=== PATIENT | female | born 1960 | race Caucasian/White ===

== ENCOUNTER 2016-07-22 10:38 | Emergency (ER) | payer OTHER ==
[~2016-07-22] VITALS: Ht 160 cm; Wt 89.0 kg
[~2016-07-22 10:38] MED LIST: ALBU8.5H3 IH; ASPI-535 PO; CARV3.1260 PO; CLOP75TA27 PO; ENAL2.5T PO; FURO-109 PO; LORA0.5T PO; PANT40TA3 PO; SPIR25TA PO
[2016-07-22 10:49] VITALS: Ht 160 cm; Wt 89.0 kg
[2016-07-22] MEDS ORDERED: morphine 4 MG/ML VIAL IV STA (11:17)
[2016-07-22] MEDS ORDERED: SOD CHLORIDE 0.9% 500 ML IV STA (11:17)
[2016-07-22] MEDS ORDERED: ONDANSETRON 4 MG INJ IV STA (11:17)
[2016-07-22] MEDS ORDERED: KETOROLAC 15 MG INJ IV STA (11:47)
--- NOTE | 2016-07-22 11:52 | ERD ---
ER Documentation Chief Complaint Date/Time DATE: 07/22/16 TIME: 11:48 Chief Complaint ap since 0600 HPI 55-year-old female who presents to the emergency room complaining of left-sided abdominal pain since 6 AM. She describes colicky bandlike pain radiating from her back to the mid abdomen. She describes it as 10 out of 10 and intermittent coming in waves. She denies any chest pain or shortness of breath, no pleuritic pain. She does have a history of a pacemaker and defibrillator secondary to unknown cause. The patient does not recall why she has this. The patient does describe a history of gallstones but no abdominal surgical history , no dysuria urgency or frequency, no fevers or chills. No numbness or tingling. Additionally the patient is complaining of bedbug bites to her abdomen, she is also complaining of left ear pain and drainage. Unknown duration of the symptoms. ROS All systems reviewed and are negative except as per history of present illness. Medications Home Meds Active Scripts Ibuprofen* (Motrin*) 800 Mg Tab, 800 MG PO Q6H Y for PAIN AND OR ELEVATED TEMP, #30 TAB Prov:CASIE SPAULDING MD 07/22/16 Ondansetron (Ondansetron Odt) 4 Mg Tab.rapdis, 4 MG PO Q6H Y for NAUSEA AND/OR VOMITING, #10 TAB Prov:CASIE SPAULDING MD 07/22/16 Hydrocodone/Acetaminophen ([place] 10-325 Tablet) 1 Each Tablet, 1 TAB PO Q6H Y for PAIN, #7 TAB Prov:CASIE SPAULDING MD 07/22/16 Ofloxacin* (Ocuflox*) 0.3%-5 Ml Ophth Drops, 1 DROP LEFT EAR QID for 7 Days, BOTTLE Prov:CASIE SPAULDING MD 07/22/16 Reported Medications Albuterol Sulfate* (Proair HFA*) 8.5 Gm Hfa.aer.ad, 2 PUFF INH Q6H Y for WHEEZING AND SOB, #1 INHALER 07/22/16 Bisoprolol Fumarate* (Bisoprolol Fumarate*) 5 Mg Tablet, 5 MG PO DAILY, TAB 07/22/16 Lisinopril* (Lisinopril*) 5 Mg Tablet, 5 MG PO DAILY, #30 TAB 07/22/16 Digoxin* (Digitek*) 125 Mcg Tablet, 0.125 MG PO DAILY, TAB 07/22/16 Albuterol Sulfate* (Proair HFA*) 8.5 Gm Hfa.aer.ad, 8.5 GM IH Y 05/07/13 Aspirin Ec (Aspir 81) 81 Mg Tablet.dr, 81 MG PO DAILY 05/06/13 Spironolactone* (Aldactone*) 25 Mg Tablet, 25 MG PO DAILY 05/06/13 Discontinued Reported Medications Lorazepam* (Lorazepam*) 0.5 Mg Tablet, 0.5 MG PO Y 05/07/13 Enalapril Maleate* (Enalapril Maleate*) 2.5 Mg Tablet, 2.5 MG PO DAILY 05/06/13 Clopidogrel Bisulfate (Clopidogrel) 75 Mg Tablet, 75 MG PO DAILY 05/06/13 Carvedilol* (Carvedilol*) 3.125 Mg Tablet, 3.125 MG PO BID 05/06/13 Furosemide* (Lasix*) 40 Mg Tablet, 40 MG PO DAILY 05/06/13 Pantoprazole* (Protonix*) 40 Mg Tablet.dr, 40 MG PO 05/06/13 Allergies Allergies: Coded Allergies: azithromycin (Verified Allergy, Unknown, 07/22/16) piperacillin sodium (Verified Allergy, Unknown, 07/22/16) rash tazobactam sodium (Verified Allergy, Unknown, 07/22/16) rash PMhx/Soc History of Surgery: No Anesthesia Reaction: No Hx Neurological Disorder: No Hx Respiratory Disorders: Yes (ASTHMA) Hx Cardiac Disorders: Yes (CARDIAC CATH 2008 NORMAL) Hx Psychiatric Problems: No Hx Miscellaneous Medical Probl: Yes (dysilipidemia, [place], asthma, gallstones) Hx Alcohol Use: Yes Hx Substance Use: No Hx Tobacco Use: No FmHx Family History: No diabetes Physical Exam Vitals Vital Signs Date Time Temp Pulse Resp B/P Pulse Ox O2 Delivery O2 Flow Rate FiO2 07/22/16 10:49 97.6 72 19 118/58 99 Physical Exam General: Well developed, well nourished, no acute distress Head: Normocephalic, atraumatic. Eyes: Pupils equally reactive, EOM intact ENT: Moist mucous membranes, left ear canal shows evidence of purulent drainage , tympanic membrane is intact and nonbulging Neck: Supple, no lymphadenopathy Respiratory: Lungs clear bilaterally, no distress Cardiovascular: RRR, no murmurs, rubs, or gallops Abdominal: Soft, mild tenderness to the mid abdomen without rebound or guarding , no pulsatile mass : Deferred MSK: No edema, no unilateral swelling, 5/5 strength no pulse deficits Neurologic: Alert and oriented, moving all extremities, normal speech, no focal weakness, no cerebellar signs Skin: Small rash to the anterior abdomen consistent with bedbug bites Psych: Normal mood Result Diagram: 07/22/16 1145 07/22/16 1145 Results 24 hrs Laboratory Tests Test 07/22/16 11:45 Activated Partial Thromboplast Time 24.7Sec Alanine Aminotransferase (ALT/SGPT) 32IU/L Albumin 4.5g/dl Albumin/Globulin Ratio 1.25 Alkaline Phosphatase 81IU/L Anion Gap 16 Aspartate Amino Transf (AST/SGOT) 22IU/L Basophils # 0.010^3/ul Basophils % 0.5% Blood Urea Nitrogen 11mg/dl Calcium Level 9.4mg/dl Carbon Dioxide Level 29mmol/L Chloride Level 99mmol/L Creatinine 0.69mg/dl Direct Bilirubin 0.00mg/dl Eosinophils # 0.210^3/ul Eosinophils % 3.2% Globulin 3.60g/dl Glucose Level 143mg/dl Hematocrit 48.2% Hemoglobin 16.3g/dl INR International Normalized Ratio 0.93 Indirect Bilirubin 0.4mg/dl Lipase 198U/L Lymphocytes # 1.110^3/ul Lymphocytes % 18.8% Mean Corpuscular Hemoglobin 30.1pg Mean Corpuscular Hemoglobin Concent 33.8g/dl Mean Corpuscular Volume 88.9fl Mean Platelet Volume 7.5fl Monocytes # 0.610^3/ul Monocytes % 9.8% Neutrophils # 4.110^3/ul Neutrophils % 67.7% Nucleated Red Blood Cells # 0.010^3/ul Nucleated Red Blood Cells % 0.0/100WBC Platelet Count 41918^3/UL Potassium Level 4.4mmol/L Prothrombin Time 12.5Sec Prothrombin Time Ratio 1.0 Red Blood Count 5.4210^6/ul Red Cell Distribution Width 14.0% Sodium Level 140mmol/L Total Bilirubin 0.4mg/dl Total Protein 8.1g/dl Troponin I < 0.012ng/ml White Blood Count 6.010^3/ul Current Medications Medications (Trade) Dose Ordered Sig/Awilda Route PRN Reason Start Time Stop Time Status Last Admin Dose Admin Sodium Chloride (NS) 500 ml @ 500 mls/hr Q1H STAT IV 07/22/16 11:17 07/22/16 12:16 DC 07/22/16 11:43 Morphine Sulfate (morphine) 4 mg ONCE STAT IV 07/22/16 11:17 07/22/16 11:18 DC Ondansetron HCl (Zofran Inj) 4 mg ONCE STAT IV 07/22/16 11:17 07/22/16 11:18 DC 07/22/16 11:43 Ketorolac Tromethamine (Toradol) 15 mg ONCE STAT IV 07/22/16 11:47 07/22/16 11:50 DC 07/22/16 11:51 Procedures/MDM EKG, MONITORS, & DIAGNOSTIC IMAGING: EKG: I reviewed and interpreted a 12-lead EKG. Rhythm: Atrial pacemaker Ectopy: None Intervals: No abnormalities ST segments: No elevations or depressions T waves: No contiguous inversions Chest x-ray: I reviewed and interpreted a 1 view of the chest Mediastinum: No enlargement Cardiac silhouette: No cardiomegaly Airspace: Clear lung hanna bilaterally without evidence of pneumothorax Bones: No evidence of fracture CT abdomen and pelvis IMPRESSION: Fat density structure with peripheral isodense thickened rim measuring 9 mm adjacent to the sigmoid colon may represent epiploic appendagitis. No evidence of bowel obstruction. No renal or ureteral stone. Hepatic steatosis. Cholelithiasis. Ultrasound gallbladder: Cholelithiasis without evidence of acute cholecystitis LAB INTERPRETATION: No leukocytosis, no hepatobiliary obstruction, negative troponin MEDICAL DECISION MAKING: The patient presents with myriad complaints. She has evidence of left otitis externa which will be treated with topical antibiotics. No evidence of perforation. She has evidence of bedbugs. No evidence of scabies, topical ointment and bed hygiene discussed. The patient's main reason for visiting his abdominal pain that is possibly related to renal colic versus biliary colic versus nonspecific abdominal pain. No evidence of acute vascular process. She has no evidence of pulse deficits or risk factors concerning for dissection. Given the broad differential I do believe that CT imaging of the abdomen and pelvis as well as ultrasound imaging of the gallbladder would be reasonable. The patient was offered pain control medication but did not want narcotics. ER COURSE: The patient refused narcotic pain medication. Her pain is improved. CT imaging shows evidence of left sided epiploic appendage otitis. This is a self- limited disease that will respond to pain medicine, time, nonsteroidal anti- inflammatories. No evidence of alternative diagnoses no evidence of acute cholecystitis or other acute intra-abdominal process. The patient can be safely managed as an outpatient with pain control medications, close primary care follow-up. We did discuss return precautions. I kept the patient and/or family informed of laboratory and diagnostic imaging results throughout the emergency room course. DISPOSITION PLAN: We discussed follow up with the patient's primary care doctor within 24 to 48 hours as needed. We also discussed return to the emergency room for worsening symptoms or worsening condition. Discharge Medications: [place], Zofran, Motrin, ofloxacin We discussed the use of narcotics including avoidance of operating heavy machinery and driving as well as its addictive properties. Departure Diagnosis: Primary Impression: Epiploic appendagitis Additional Impressions: Otitis externa Otitis externa type: other infective Laterality: left Chronicity: acute Qualified Code: H60.392 - Other infective acute otitis externa of left ear Bed bug bite Encounter type: initial encounter Qualified Code: W57.XXXA - Bed bug bite, initial encounter Condition: CASIE Costa MD Jul 22, 2016 11:52
[2016-07-22] MEDS ORDERED: LISI-313 PO (12:01)
[2016-07-22] MEDS ORDERED: DIGO125T PO (12:01)
[2016-07-22 12:02] LABS: BASOPHILS % 0.5 % (0.0-2.0); EOSINOPHILS # 0.2 10^3/ul (0.0-0.5); EOSINOPHILS % 3.2 % (0.0-7.0); HEMATOCRIT 48.2 % (37.0-47.0); HEMOGLOBIN 16.3 g/dl (12.0-16.0); LYMPHOCYTES # 1.1 10^3/ul (0.8-2.9); LYMPHOCYTES % 18.8 % (15.0-51.0); MEAN CORPUSCULAR HEMOGLOBIN 30.1 pg (29.0-33.0); MEAN CORPUSCULAR HGB CONC 33.8 g/dl (32.0-37.0); MEAN CORPUSCULAR VOLUME 88.9 fl (82.0-101.0); MEAN PLATELET VOLUME 7.5 fl (7.4-10.4); MONOCYTE # 0.6 10^3/ul (0.3-0.9); MONOCYTES % 9.8 % (0.0-11.0); NEUTROPHIL # 4.1 10^3/ul (1.6-7.5); NEUTROPHILS % 67.7 % (39.0-77.0); PLATELET COUNT 328 10^3/UL (140-440); RED BLOOD COUNT 5.42 10^6/ul (4.20-5.40)
[2016-07-22] MEDS ORDERED: BISO5TAB21 PO (12:02)
[2016-07-22] MEDS ORDERED: ALBU8.5H3 INH (12:02)
[2016-07-22 12:03] LABS: CONDITION 1
[2016-07-22 12:07] LABS: INR 0.93; PROTIME 12.5 Sec (12.2-14.2)
[2016-07-22 12:08] LABS: PARTIAL THROMBOPLASTIN TIME 24.7 Sec (25.0-35.0)
[2016-07-22 12:13] LABS: ALBUMIN 4.5 g/dl (3.3-4.9); CHLORIDE 99 mmol/L (97-110)
[2016-07-22 12:14] LABS: POTASSIUM 4.4 mmol/L (3.5-5.1); SODIUM 140 mmol/L (135-144)
[2016-07-22 12:16] LABS: ALBUMIN/GLOBULIN RATIO 1.25; ALKALINE PHOSPHATASE 81 IU/L (42-121); ANION GAP 16 (8-16); ASPARTATE AMINO TRANSFERASE 22 IU/L (15-46); BILIRUBIN,INDIRECT 0.4 mg/dl (0-1.1); BILIRUBIN,TOTAL 0.4 mg/dl (0.2-1.3); BLOOD UREA NITROGEN 11 mg/dl (7-20); CARBON DIOXIDE 29 mmol/L (21-31); CREATININE 0.69 mg/dl (0.44-1.00); TOTAL PROTEIN 8.1 g/dl (6.1-8.1)
[2016-07-22 12:17] LABS: ALANINE AMINOTRANSFERASE 32 IU/L (13-69); CALCIUM 9.4 mg/dl (8.4-10.2); GLUCOSE 143 mg/dl (70-220)
--- NOTE | 2016-07-22 12:26 | RADRPT ---
PROCEDURE: XR Chest. CLINICAL INDICATION: Abdominal pain TECHNIQUE: Chest AP portable. COMPARISON: 05/09/2013 FINDINGS: Left-sided dual lead pacemaker. The mediastinal structures are unremarkable. The heart is normal in size and configuration. The pu lmonary vascularity is normal. The lung hanna are unremarkable. No consolidation is identified. The pleural spaces are unremarkable. The axial skeleton is unremarkable. IMPRESSION: No active intrathoracic disease. RPTAT: HGDB .Don Domínguez MD, MD Date Time Electronically viewed and signed by .Don Domínguez MD, MD on 07/22/2016 12:25 .B/
[2016-07-22 12:34] LABS: TROPONIN-I < 0.012 ng/ml (0.00-0.12)
--- NOTE | 2016-07-22 12:43 | RADRPT ---
PROCEDURE: Right Upper Quadrant Ultrasound. CLINICAL INDICATION: Abdominal pain TECHNIQUE: Multiple real-time images were acquired of the patient's right upper quadrant abdomen a nd retroperitoneum utilizing a high resolution transducer. COMPARISON: Gallbladder ultrasound from 05/06/2013 FINDINGS: The liver measures 18.9 cm, and demonstrates diffusely increased echogenicity. The main portal vein is patent with proper directional flow. There is no intrahepatic biliary ductal dilatation. The extr ahepatic common bile duct measures 4 mm. There is cholelithiasis. There is no gallbladder wall thickening or pericholecystic fluid. The visualized pancreas is unremarkable. The right kidney measures 11.2 cm and demonstrates normal echotexture. There is no right renal calcu dusty or hydronephrosis. The visualized abdominal aorta and IVC are grossly unremarkable. IMPRESSION: Hepatomegaly with severe fatty infiltration. Cholelithiasis is again noted without gallbladder wall thickening or pericholecystic fluid to sugges t acute cholecystitis. Normal CBD. RPTAT: EE Physician Ace Date Time Electronically viewed and signed by Physician Ace on 07/22/2016 12:43 /
--- NOTE | 2016-07-22 12:56 | RADRPT ---
PROCEDURE: CT Abdomen and Pelvis without contrast. CLINICAL INDICATION: Abdominal pain TECHNIQUE: CT scan of the abdomen and pelvis was performed on a multidetector high-resolution CT s canner without intravenous contrast. Coronal and sagittal reformatted images were obtained from the axial source images. Images were reviewed on a high-resolution PACS workstation. The total exam CTD I equals 22mGy and the total exam DLP equals 1257mGy-cm. One or more of the following dose reduction techniques were used: Automated exposure control, Adjustment of the mA and/or kV according to patie nt size, and/or use of iterative reconstruction technique. COMPARISON: Correlation abdominal ultrasound today FINDINGS: Evaluation of the solid organs is limited given the lack of intravenous contrast administration. Partially imaged AICD lead in the right ventricle. Hypoattenuation of the liver. The pancreas, spleen, and adrenals are grossly unremarkable. Cholelithiasis without focal pericholecystic inflammatory changes. No hydronephrosis. No renal or ureteral stone. No bowel obstruction. Normal-caliber appendix. Fat density structure with peripheral isodense thic kened rim measuring 9 mm adjacent to the sigmoid colon. No significant retroperitoneal lymphadenopathy, ascites or evidence of pneumoperitoneum. IMPRESSION: Fat density structure with peripheral isodense thickened rim measuring 9 mm adjacent to the sigmoid colon may represent epiploic appendagitis. No evidence of bowel obstruction. No renal or ureteral stone. Hepatic steatosis. Cholelithiasis. RPTAT: AA .Brandt Jurado MD, Date Time Electronically viewed and signed by .Brandt Jurado MD, MD on 07/22/2016 12:55 .T/
[2016-07-22] MEDS ORDERED: IBUP800T25 PO (13:00)
[2016-07-22] MEDS ORDERED: HYDR-902 PO (13:00)
[2016-07-22] MEDS ORDERED: OFLO5DRO46 LEFT EAR (13:00)
[2016-07-22] MEDS ORDERED: ONDA4TAB14 PO (13:00)
[2016-07-22 13:15] VITALS: BP 126/67; PULSE 65; RESP 18; TEMP 98.1
== END 2016-07-22 13:57 | disposition home or self-care (01) ==
LOC: E/R 10:38
DX: K63.89 Other specified diseases of intestine (principal); H60.392 Other infective otitis externa, left ear; S30.861A Insect bite (nonvenomous) of abdominal wall, initial encounter; J45.909 Unspecified asthma, uncomplicated; I10 Essential (primary) hypertension; W57.XXXA Bitten or stung by nonvenomous insect and other nonvenomous arthropods, initial encounter; Y92.9 Unspecified place or not applicable; Z79.82 Long term (current) use of aspirin; Z87.891 Personal history of nicotine dependence; Z95.0 Presence of cardiac pacemaker
CPT/HCPCS: 71010; 74176; 76705; 80053; 83690; 84484; 85025; 85610; 85730; 93005; 96374; 96375; J1885; J2405; J7040; Z7502; J2270